=== PATIENT | female | born 1990 | race Caucasian/White ===

== ENCOUNTER 2017-12-04 19:51 | Inpatient (IN) | payer OTHER ==
[~2017-12-04] VITALS: Ht 154.9 cm; Wt 67.1 kg
[2017-12-04 11:55] VITALS: BP 113/60
--- NOTE | 2017-12-04 20:01 | NUR ---
Dr. Blake TRIANA MD at bedside for MSE.
--- NOTE | 2017-12-04 20:09 | NUR ---
Pt ambulates to ER with c/o intermittent chest pain that started yesterday. Pt describes the pain as dull and feels like a heavy pressure 8/10. Pt states she feels short of breath. SA02 100% room air. NSR on community assistant. [place] 3 [place] [facility] [place] [facility].
[2017-12-04] MEDS ORDERED: LORAZEPAM 2 MG/1 ML VIAL ONE ×2 (20:14→21:52)
[2017-12-04] MEDS ORDERED: ASPIRIN 325 MG TABLET ONE (20:14)
[2017-12-04] MEDS ORDERED: LORAZEPAM 2 MG/1 ML VIAL IV ONE ×2 (20:15→22:15)
[2017-12-04] MEDS ORDERED: ASPIRIN 325 MG TABLET PO ONE (20:15)
[2017-12-04 20:22] LABS: BASOPHILS # (AUTO) 0.1 K/uL (0.0-8.0); EOSINOPHILS # (AUTO) 0.1 K/uL (0.0-0.7); EOSINOPHILS % (AUTO) 1.3 % (0.0-7.0); HEMATOCRIT 39.9 % (31.2-41.9); HEMOGLOBIN 13.9 g/dL (10.9-14.3); LYMPHOCYTES % (AUTO) 30.7 % (20.5-51.5); MEAN CORPUSCULAR HEMOGLOBIN 30.9 uug (24.7-32.8); MEAN CORPUSCULAR HGB CONC 35 g/dL (32.3-35.6); MONOCYTES # (AUTO) 0.6 K/uL (2.0-10.0); NEUTROPHILS # (AUTO) 5.9 K/uL (1.8-8.9); PLATELET COUNT (AUTO) 205 K/uL (179-408); RED BLOOD CELL COUNT(AUTO) 4.48 MIL/uL (3.63-4.92); WHITE BLOOD COUNT (AUTO) 9.6 K/uL (3.8-11.8)
--- NOTE | 2017-12-04 20:27 | NUR ---
Saline lock in place. Meds given. Blood samples sent to lab. Chest xray done. Pending results.
[2017-12-04 20:35] LABS: BILIRUBIN,DIRECT 0.1 mg/dL (0.0-0.2); BILIRUBIN,TOTAL 0.3 mg/dL (0.2-1.0); POTASSIUM 3.9 mmol/L (3.5-5.1); TOTAL PROTEIN, SERUM 7.9 g/dL (6.4-8.2)
[2017-12-04 20:43] LABS: THYROID STIMULATING HORMONE 4.209 mIU/mL (0.358-3.740)
[2017-12-04] MEDS ORDERED: NITROGLYCERIN 0.4 MG/TAB BOTTLE SL ONE ×2 (20:45→20:47)
[2017-12-04] MEDS ORDERED: ACETAMINOPHEN ES 500 MG TABLET ONE (20:57)
[2017-12-04] MEDS ORDERED: METR500T4 PO (21:07)
--- NOTE | 2017-12-04 21:08 | NUR ---
Nitro SL provided relief for pt. Tylenol given for headache. VSS.
[2017-12-04] MEDS ORDERED: LISD20CA PO (21:09)
[2017-12-04] MEDS ORDERED: ACETAMINOPHEN ES 500 MG TABLET PO ONE (21:15)
[2017-12-04] MEDS ORDERED: TEMAZEPAM 7.5 MG CAPSULE PO PRN (22:30)
[2017-12-04] MEDS ORDERED: ACETAMINOPHEN 325 MG TABLET PO PRN (22:30)
[2017-12-04] MEDS ORDERED: ALBUTEROL SULFATE 2.5 MG/3 ML NEBU NEB PRN (22:30)
--- NOTE | 2017-12-04 23:10 | NUR ---
Waiting for pt's 3 year old son father to be picked up. Pending Tele admission.
--- NOTE | 2017-12-04 23:35 | NUR ---
Pt. admitted to Telemetry , under care of Dr. Jimbo Summers. Diagnosis: Chest Pain Belongs List completed All belongings with pt. VSS. Report given to JAE Hastings.
--- NOTE | 2017-12-04 23:45 | NUR ---
Received pt in unit and observed to be aao x 3, in no acute distress. Tele monitor placed and noted to be sinus rhythm with occasional PAC's. Pertinent assessments done. Pt c/o chest pain radiating to left shoulder and to left upper abdomen describing pain as sharp and dull with intensity of 7/10. Pt made aware of plan of care. Unit orientation provided. Pain management will be provided as ordered. Safe environment implemented. Call light within reach.
[2017-12-04 23:55] VITALS: BP 113/60
[2017-12-05] MEDS: MORPHINE SULFATE 4 MG/1 ML DISP.SYRIN IV PRN ×2 (00:15→05:07)
[2017-12-05] MEDS: ONDANSETRON 4 MG/2 ML VIAL IV PRN ×2 (00:37→15:08)
[2017-12-05 04:44] VITALS: BP 99/49
--- NOTE | 2017-12-05 06:00 | NUR ---
Pain management implemented as ordered. No s/s of acute distress noted at this time. Safe environment implemented. Call light within reach.
[2017-12-05] MEDS: PANTOPRAZOLE SODIUM 40 MG TABLET.DR PO SCH (06:08)
[2017-12-05 06:27] LABS: BASOPHILS # (AUTO) 0.1 K/uL (0.0-8.0); BASOPHILS % (AUTO) 0.9 % (0.0-2.0); EOSINOPHILS # (AUTO) 0.1 K/uL (0.0-0.7); EOSINOPHILS % (AUTO) 1.8 % (0.0-7.0); HEMATOCRIT 37.6 % (31.2-41.9); HEMOGLOBIN 12.8 g/dL (10.9-14.3); LYMPHOCYTES % (AUTO) 26.9 % (20.5-51.5); MEAN CORPUSCULAR HGB CONC 34 g/dL (32.3-35.6); MEAN CORPUSCULAR VOLUME 90.6 fL (75.5-95.3); MONOCYTES # (AUTO) 0.7 K/uL (2.0-10.0); MONOCYTES % (AUTO) 8.8 % (0.0-11.0); NEUTROPHILS # (AUTO) 4.7 K/uL (1.8-8.9); NEUTROPHILS % (AUTO) 61.6 % (38.5-71.5); PLATELET COUNT (AUTO) 193 K/uL (179-408); RED BLOOD CELL COUNT(AUTO) 4.15 MIL/uL (3.63-4.92); WHITE BLOOD COUNT (AUTO) 7.6 K/uL (3.8-11.8)
[2017-12-05 06:45] LABS: BILIRUBIN,TOTAL 0.4 mg/dL (0.2-1.0); CREATININE 0.9 mg/dL (0.6-1.3); MAGNESIUM 1.6 mg/dL (1.8-2.4); PHOSPHOROUS 4.5 mg/dL (2.5-4.9); POTASSIUM 3.9 mmol/L (3.5-5.1); TOTAL PROTEIN, SERUM 7.1 g/dL (6.4-8.2)
[2017-12-05 08:39] VITALS: BP 110/61
[2017-12-05] MEDS ORDERED: LISDEXAMFETAMINE DIMESYLATE 20 MG PO SCH (09:00)
[2017-12-05] MEDS ORDERED: FUROSEMIDE 20 MG/2 ML VIAL IV SCH (09:00)
[2017-12-05] MEDS: MORPHINE SULFATE 2 MG/1 ML DISP.SYRIN IV PRN ×4 (09:19→18:48)
[2017-12-05] MEDS: ASPIRIN 81 MG TAB.CHEW PO SCH (09:21)
[2017-12-05] MEDS: NICOTINE 21 MG/24HR PATCH TD SCH (09:21)
[2017-12-05] MEDS ORDERED: MAGNESIUM OXIDE 400 MG TABLET PO ONE (09:30)
--- NOTE | 2017-12-05 10:00 | NUR ---
RAPID RESPONCE CALLED PT. BECAME VERY ANXIOUS, SL SOB O2 AT 2 L/MIN VIA N/C. CXR AND EKG DONE. LABS DRAWN DR. ELLIS AT BEDSIDE. C/O SEVERE SUDDEN ABD PAIN. NO N AND V. V/S STABLE.. STATES FEELING BETTER NOW
[2017-12-05] MEDS ORDERED: ALPRAZOLAM 0.5 MG TABLET PO SCH (10:15)
--- NOTE | 2017-12-05 11:00 | NUR ---
CT ABD W/CONTRAST DONE.
[2017-12-05] MEDS ORDERED: MORPHINE SULFATE 2 MG/1 ML DISP.SYRIN IV ONE (11:15)
[2017-12-05 11:53] VITALS: BP 110/78
[2017-12-05] MEDS ORDERED: IV D5/ 0.9% NACL 1,000 ML IV PRN (12:00)
[2017-12-05] MEDS ORDERED: SWABABLE VALVE TRANSFER SET EA MC ONE (12:27)
[2017-12-05] MEDS ORDERED: IOHEXOL 300MG/ML 100 ML INFUS..BTL ONE (12:28)
[2017-12-05] MEDS ORDERED: IV NORMAL SALINE 250 ML IV ONE (12:28)
[2017-12-05 12:29] LABS: IRON, SERUM 91 ug/dL (50-175)
[2017-12-05 15:43] VITALS: BP 115/69
[2017-12-05 17:14] VITALS: BP 104/63
--- NOTE | 2017-12-05 18:00 | NUR ---
HAD INTERMITENT EPISODES OF SEVERE ABD. PAIN WITH SL CHEST PAIN. 2D ECHO DONE. MEDICATED SEVERAL TIMES TODAY FOR C/O PAIN-CHEST AND ABDOMINAL AND NAUSEA
[2017-12-05] MEDS ORDERED: ONDANSETRON 4 MG/2 ML VIAL IV ONE (18:30)
--- NOTE | 2017-12-05 19:30 | NUR ---
Received patient from day shift nurse in stable condition. No acute distress noted. Vital signs within range. Pertinent assessment completed. A/Ox4 & able to make all her needs known. Patient currently denying pain & SOB. States that the morphine relieves her abdominal pain. Skin is clear & intact. Noted with right AC IV which is currently infiltrated at start of shift. Will start new IV. Patient on IV fluids D5NS at 80cc/hr. Per day shift RN, patient to have possible EGD with Dr. Montesinos in AM. Will f/u with . Call light within reach. Will continue to monitor through shift.
[2017-12-05 20:06] VITALS: BP 116/68
--- NOTE | 2017-12-05 20:15 | NUR ---
New order from Dr. Montesinos for EGD in AM at 0800. Per MD, patient to be NPO at midnight. Consent is signed by patient. Will continue to monitor.
[2017-12-05] MEDS ORDERED: ALPR0.255 PO (21:00)
[2017-12-05] MEDS: ALPRAZOLAM 0.5 MG TABLET PO PRN (21:24)
[2017-12-05] MEDS ORDERED: NICOTINE 21 MG/24HR PATCH TD SCH (22:45)
[2017-12-06] MEDS: MORPHINE SULFATE 2 MG/1 ML DISP.SYRIN IV PRN ×3 (04:25→13:37)
[2017-12-06 05:22] VITALS: BP 106/49
--- NOTE | 2017-12-06 06:16 | NUR ---
Patient slept intermittently through the shift. C/O abdominal pain 09/14. Administered pain meds as ordered with relief from pain meds. All needs attended to. Kept patient NPO per GI MD order. Preop checklist completed. Patient compliant with care. Safety measures implemented. Call light within reach. Will endorse to oncoming shift.
[2017-12-06] MEDS: PANTOPRAZOLE SODIUM 40 MG TABLET.DR PO SCH (06:25)
--- NOTE | 2017-12-06 07:48 | NUR ---
PT PICKED UP FOR EGD, PT REFUSED TO GIVE UP RING, RING WHITE WITH STONE, IT WAS TAPED ON HER FINGER. PT WAS EXPLAINED THAT [facility] NOT BE RESPONSIBLE. PT UNDERSTANDS CONSEQUENCES STILL WANTS TO KEEP RING ON.
[2017-12-06] MEDS: ASPIRIN 81 MG TAB.CHEW PO SCH (09:00)
[2017-12-06] MEDS: NICOTINE 21 MG/24HR PATCH TD SCH (10:34)
[2017-12-06] MEDS: ALPRAZOLAM 0.5 MG TABLET PO PRN (11:08)
[2017-12-06] MEDS ORDERED: SUCRALFATE 1 G TABLET PO SCH (11:45)
[2017-12-06 11:56] VITALS: BP 112/73
[2017-12-06] MEDS ORDERED: OMEP20CA10 PO (13:32)
[2017-12-06] MEDS ORDERED: SUCR1TAB PO (13:32)
[2017-12-06] MEDS ORDERED: HYDR-3326 PO (13:33)
[2017-12-06] MEDS ORDERED: PROPOFOL 200 MG/20 ML BOTTLE IV ONE (13:37)
[2017-12-06] MEDS ORDERED: SIMETHICONE 40 MG/0.6 ML 30 ML BOTTLE MC ONE (13:37)
[2017-12-06] MEDS ORDERED: IV LACTATED RINGERS SOLUTION 1,000 ML BAG IV ONE (13:37)
[2017-12-06] MEDS ORDERED: LIDOCAINE HCL 2% 20 ML VIAL MC ONE (13:37)
--- NOTE | 2017-12-06 15:00 | NUR ---
PT DC HOME VIA [employer]BER. PT DC WITH ALL BELONGINGS, VALUABLES, EXIT CARE PACKET,MEDICATIONS, AND PRESCRIPTIONS. PT HAS AN APPOINTMENT WITH THE [facility] ON Sunday12/11/17 AT 1300. PT IS AGREEABLE TO THE APPOINTMENT. PT STABLE TO DC NO SIGNS OF RESPIRATORY DISTRESS.
== END 2017-12-06 15:00 | disposition home or self-care (01) | DRG 241 ==
LOC: ER 19:51 → TELE 21:30 → MED 12-05 16:39
PROVIDERS: ADMIT Internal Medicine; ATTEND Internal Medicine
PROC: 0DB78ZX Excision of Stomach, Pylorus, Via Natural or Artificial Opening Endoscopic, Diagnostic (ICD-10-PCS; principal; 2017-12-06 08:00)
DX: K29.00 Acute gastritis without bleeding (principal); I49.2 Junctional premature depolarization; D25.9 Leiomyoma of uterus, unspecified; F41.9 Anxiety disorder, unspecified; I51.7 Cardiomegaly; F90.9 Attention-deficit hyperactivity disorder, unspecified type; F17.210 Nicotine dependence, cigarettes, uncomplicated
CPT/HCPCS: 36415; 70030-TC; 71045; 83550; 83735; 84100; 84443; 85025; 85730; 93005; 93307; A4663; A9150; G0378; J1940; J2060; J2270; J2405; J3490; J7030; J7042; J7050; J7120; Q9967

== ENCOUNTER 2018-04-14 23:07 | Emergency (ER) | payer MEDICAID, OTHER ==
[~2018-04-14] VITALS: Ht 154.9 cm; Wt 63.5 kg
[~2018-04-14 23:07] MED LIST: ALPR0.255 PO; HYDR-3326 PO; LISD20CA PO; OMEP20CA10 PO; SUCR1TAB PO
--- NOTE | 2018-04-14 23:14 | NUR ---
Pt ambulates to ER with c/o coughing up green phlegm x 1 week & rectal pain x 1 week. NSR on certified orthoptist. SA02 100% room air. AAOx4.
--- NOTE | 2018-04-14 23:32 | NUR ---
Female press assistant accompanied female patient for Dr. Bliss for digital rectal exam.
[2018-04-14] MEDS ORDERED: KETOROLAC TROMETHAMINE 30 MG INJ IM ONE (23:45)
[2018-04-14] MEDS ORDERED: KETOROLAC TROMETHAMINE 30 MG INJ ONE (23:49)
--- NOTE | 2018-04-14 23:59 | NUR ---
Pt states taking a Lyft home.
--- NOTE | 2018-04-14 23:59 | NUR ---
Patient discharged to home in stable conditon. Written and verbal after care instructions given. Patient verbalizes understanding of instructions. Pt ambulated out of ER in steady gait. All belongings w pt. VSS. NAD noted.
[2018-04-15 00:02] VITALS: BP 112/72
== END 2018-04-15 00:03 | disposition home or self-care (01) ==
LOC: ER 23:10
DX: J40 Bronchitis, not specified as acute or chronic (principal); K64.9 Unspecified hemorrhoids; F17.200 Nicotine dependence, unspecified, uncomplicated; Z91.040 Latex allergy status; Z79.899 Other long term (current) drug therapy
CPT/HCPCS: 71045; 93005; 96372; 99283; J1885; A4663

== ENCOUNTER 2018-07-04 19:33 | Emergency (ER) | payer MEDICAID ==
[~2018-07-04] VITALS: Ht 154.9 cm; Wt 61.2 kg
--- NOTE | 2018-07-04 20:22 | NUR ---
PATIENT WAS MSE BY DR CHAVEZ IN ROOM 03A.
--- NOTE | 2018-07-04 20:36 | NUR ---
Patient does not wish to proceed with medical care recommended by Dr. CHAVEZ. Patient given information related to possible complications, up to and including , which could occur as a result of leaving the hospital at this time. Patient verbalizes understanding of risks involved due to leaving against medical advice. Patient has signed AMA form.
--- NOTE | 2018-07-04 20:38 | NUR ---
PATIENT LEFT ER AMBULATORY A & O X3 NO SOB DISTRESS NORMAL STEADY GAIT ALL BELONGINGS TAKEN HOME.
== END 2018-07-04 20:38 | disposition left against medical advice (07) ==
LOC: ER 19:35
DX: J02.9 Acute pharyngitis, unspecified (principal); R42 Dizziness and giddiness; F17.200 Nicotine dependence, unspecified, uncomplicated; Z79.899 Other long term (current) drug therapy
CPT/HCPCS: 93005; A4663